=== PATIENT | male | born 1985 | race Caucasian/White ===

== ENCOUNTER 2021-01-30 18:35 | Emergency (ER) | payer BC ==
--- NOTE | 2021-01-30 19:18 | EDM.PDOC ---
ED HPI GENERAL MEDICAL PROBLEM - General Chief Complaint: IV Access Related Stated Complaint: CATHETER CAME OUT Time Seen by Provider: 01/30/21 18:39 Source of Information: Reports: Patient, Family, RN Notes Reviewed History Limitations: Reports: No Limitations - History of Present Illness INITIAL COMMENTS - FREE TEXT/NARRATIVE: 35-year-old gentleman presents emergency department today with dislodgment of his dialysis catheter, he had a dialysis catheter inserted appears to be subclavian area on the right side he states he was walking downstairs and felt something in his shirt did not look down and his catheter had fallen out he did have a small amount of bleeding initially but bleeding has now stopped. He does not feel lightheaded does not feel like he wants to pass out he feels like he is in his normal state. He is on dialysis due to diabetes and end-stage renal disease, catheter has been in place since October of this year - Related Data Allergies Allergy/AdvReac Type Severity Reaction Status Date / Time No Known Allergies Allergy Verified 01/30/21 18:47 Home Meds: Home Meds Bumetanide [Bumex] 2 mg PO BID 01/30/21 [History] Insulin Degludec [Tresiba] 14 unit SQ BID 01/30/21 [History] amLODIPine [Norvasc] 5 mg PO BEDTIME 01/30/21 [History] atorvaSTATin [Lipitor] 10 mg PO BEDTIME 01/30/21 [History] carvediloL [Carvedilol] 25 mg PO BID 01/30/21 [History] Past Medical History HEENT History: Reports: Other (See Below) Other HEENT History: swelling behind retina Cardiovascular History: Reports: High Cholesterol, Hypertension Gastrointestinal History: Reports: Other (See Below) Other Gastrointestinal History: gastroparesis Genitourinary History: Reports: Dialysis Endocrine/Metabolic History: Reports: Diabetes, Type II Social & Family History - Tobacco Use Tobacco Use Status *Q: Never Tobacco User Second Hand Smoke Exposure: No - Caffeine Use Caffeine Use: Reports: Soda - Recreational Drug Use Recreational Drug Use: No ED ROS GENERAL - Review of Systems Review Of Systems: See Below Constitutional: Reports: No Symptoms Respiratory: Reports: No Symptoms Cardiovascular: Reports: No Symptoms GI/Abdominal: Reports: No Symptoms ED EXAM, GENERAL - Physical Exam Exam: See Below Free Text/Narrative:: Examination of the dialysis catheter site at on appreciate any significant bleeding there is an open wound is nontender around the area no sign of infection Exam Limited By: No Limitations General Appearance: Alert, WD/WN, No Apparent Distress Respiratory/Chest: No Respiratory Distress, Lungs Clear, Normal Breath Sounds, No Accessory Muscle Use, Chest Non-Tender Cardiovascular: Regular Rate, Rhythm, No Murmur Course - Vital Signs Last Recorded V/S: Last Vital Signs Temp 98.2 F 01/30/21 19:00 Pulse 74 01/30/21 19:00 Resp 15 01/30/21 19:00 BP 156/100 H 01/30/21 19:00 Pulse Ox 98 01/30/21 19:00 Departure - Departure Time of Disposition: 19:44 Disposition: Home, Self-Care 01 Condition: Fair Clinical Impression: Displacement of vascular dialysis catheter, initial encounter - Discharge Information Referrals: PCP,None [Primary Care Provider] - Forms: ED Department Discharge Additional Instructions: Please contact the dialysis center in the morning for referral to surgery who places dialysis catheter, call return to the emergency department worsening of symptoms Sepsis Event Note (ED) - Evaluation Sepsis Screening Result: No Definite Risk - Focused Exam Vital Signs: Vital Signs Temp Pulse Resp BP Pulse Ox 01/30/21 19:00 98.2 F 74 15 156/100 H 98 - Assessment/Plan Plan: Assessment Acuity = acute Site and laterality = displacement dialysis catheter Etiology = unknown Manifestations = none Location of injury = Home Lab values = none Plan Called and discussed case Dr. Dupree surgeon on-call at 1930 recommended pressure dressing contact the dialysis center in the morning for referral to surgeon who will place a dialysis catheter This note was dictated using [employer] voice recognition software please call with any questions on syntax or grammar.
== END 2021-01-30 19:59 | disposition home or self-care (01) ==
LOC: JP.ED 18:35
DX: Z49.01 Encounter for fitting and adjustment of extracorporeal dialysis catheter (principal); E78.00 Pure hypercholesterolemia, unspecified; I10 Essential (primary) hypertension; E11.43 Type 2 diabetes mellitus with diabetic autonomic (poly)neuropathy; K31.84 Gastroparesis; Z79.899 Other long term (current) drug therapy; Z79.4 Long term (current) use of insulin
CPT/HCPCS: 99283